=== PATIENT | female | born 1975 | race Caucasian/White ===

== ENCOUNTER → 2016-07-27 | Outpatient (CLI) | payer OTHER | LOC: FIMAGING 09:43 | PROVIDERS: ATTEND Obstetrics & Gynecology | DX: N92.0 Excessive and frequent menstruation with regular cycle (principal) ==

== ENCOUNTER 2016-10-22 18:50 | Emergency (ER) | payer OTHER ==
[2016-10-22 18:54] VITALS: RESP 16
[2016-10-22] MEDS ORDERED: ONDANSETRON 4 MG/2 ML VIAL IVP ONE (19:54)
[2016-10-22] MEDS ORDERED: NS 1,000 ML IV ONE ×2 (19:56→22:26)
--- NOTE | 2016-10-22 20:16 | EDPHY ---
HPI/HX/ROS/PE/MDM Narrative: CHIEF COMPLAINT: Headache HISTORY OF PRESENT ILLNESS: The patient is a 40-year-old female with history of migraines, who presents with headache that started around 12 p.m. The patient had a headache yesterday, no associated vomiting, or light sensitivity. She took Ibuprofen and headache improved. Around 12 p.m. today she developed frontal headache, that feels similar to previous migraines. She has not had a migraine for five years. Her headache today is severe, it is localized across the frontal region. She has associated vomiting and photophobia. The patient recently had UTI and was on antibiotics. She denies numbness, tingling, or weakness in her extremities. She reports no recent head trauma. The patient is noncompliant with her hypertension medication, she states she does not take it because of the side effects. She had a cold last week. No persistent symptoms. REVIEW OF SYSTEMS: Aside from elements discussed in the HPI, a comprehensive 10-point review of systems was reviewed and is negative. PAST MEDICAL HISTORY: Migraines, Hypertension. Patient reports that she has not been taking her antihypertensive medications. SOCIAL HISTORY: . Lives in [place]. VITAL SIGNS Reviewed by me. GENERAL: Very uncomfortable appearing, resting in a dark room. HEENT: Atraumatic. Eyes: PERRL, EOMI, no nystagmus. No icterus. No injection. Mouth: moist mucous membranes. No erythema or lesions. Neck: No meningitis. Nontender to palpation. No adenopathy. Negative Kernig's. Negative Brudzinski's. No meningismus. LUNGS: Clear to auscultation bilaterally, no wheezes, rhonchi or rales. CARDIAC: Regular rate and rhythm, no rubs, murmurs or gallops. ABDOMEN: Soft, nontender, nondistended, bowel sounds normal. BACK: No CVA tenderness. EXTREMITIES: No trauma. No edema. Range of motion is normal throughout. NEURO: Alert and oriented, cranial nerves II through XII are intact. Motor strength 5 over 5 in all major muscle groups. Sensation intact to light touch. Normal gait. SKIN: Warm and dry, no rash. PSYCHIATRIC: Normal mentation, no agitation. Portions of this note were transcribed by a medical claims processor. I personally performed a history, physical exam, medical decision making, and confirmed accuracy of information the transcribed note. ED Course: Patient presents with migraine headache. Patient has not had migraine for over 5 years, with no recent workups. She reports severe, stabbing frontal headache. Associated vomiting and photophobia. IV established, patient received IV Zofran for nausea. Plan to treat headache with IV Decadron, Benadryl, Dilaudid, Reglan , and fluids. I ordered a head CT for further evaluation. Patient's head CT demonstrates no intracranial findings but the patient does have bilateral maxillary sinusitis. On re-examination she reports having a cold last week. Patient's pain has been decreased from 8/10 to 4/10. Toradol was administered. Patient was improved following the Toradol. She was comfortable being discharged home with hydrocodone to use as needed for any recurrent breakthrough pain. Patient was also instructed to continue taking her Bactrim for full 10 days to treat any acute maxillary sinusitis. MDM: After history was obtained, and the physical exam performed, a differential for headache was considered including, but not limited to, subarachnoid hemorrhage, migraine headache, tension headache and infectious causes such as meningitis, sinusitis, encephalitis. - Data Points Imaging Results: Imaging Impressions Head CT 10/22/16 20:19 Impression: 1. Moderate bilateral maxillary sinusitis.. 2. Otherwise, normal noncontrast CT brain. Findings and recommendations discussed with Emergency Department physician, Nadine Dykes M.D., at 2130 hours, on October 22, 2016. Final report concurs with initial preliminary interpretation. Imaging: Discussed imaging studies w/ material planner Radiologist Medications Given: Discontinued Medications Dexamethasone (Decadron Injection) 10 mg IVP EDNOW ONE Stop: 10/22/16 20:19 Last Admin: 10/22/16 20:44 Dose: 10 mg Diphenhydramine HCl (Benadryl Injection) 25 mg IVP EDNOW ONE Stop: 10/22/16 20:19 Last Admin: 10/22/16 20:44 Dose: 25 mg Hydromorphone HCl (Dilaudid) 0.5 mg IVP EDNOW ONE Stop: 10/22/16 20:19 Last Admin: 10/22/16 20:45 Dose: 0.5 mg Sodium Chloride (Ns) 1,000 mls @ 0 mls/hr IV ONCE ONE PRN Reason: Wide Open Stop: 10/22/16 19:57 Last Admin: 10/22/16 19:57 Dose: 1,000 mls Ketorolac Tromethamine (Toradol) 30 mg IVP EDNOW ONE Stop: 10/22/16 21:39 Last Admin: 10/22/16 21:45 Dose: 30 mg Metoclopramide HCl (Reglan Injection) 10 mg IVP EDNOW ONE Stop: 10/22/16 20:19 Last Admin: 10/22/16 20:45 Dose: 10 mg Ondansetron HCl (Zofran) 4 mg IVP EDNOW ONE Stop: 10/22/16 19:55 Last Admin: 10/22/16 19:56 Dose: 4 mg General Time Seen by Provider: 10/22/16 19:55 Initial Vital Signs: Initial Vital Signs Temperature (C) 36.8 C 10/22/16 18:52 Heart Rate 72 10/22/16 18:52 Respiratory Rate 16 10/22/16 18:52 Blood Pressure 167/95 H 10/22/16 18:52 O2 Sat (%) 99 10/22/16 18:52 O2 Delivery Mode Room Air Allergies/Adverse Reactions: No Known Allergies Allergy (Unverified 07/25/15 20:28) Home Medications: Medication Instructions Recorded Lisinopril 07/25/15 Bactrim DS 10/22/16 Hydrocodone/APAP 5/325 [[place] 1 tab PO Q6H PRN #8 tab 10/22/16 5/325 (RX)] Departure - Departure Disposition: Home, Routine, Self-Care Clinical Impression: Migraine headache Qualifiers: Migraine type: without aura Status migrainosus presence: without status migrainosus Intractability: not intractable Qualified Code(s): G43.009 - Migraine without aura, not intractable, without status migrainosus Sinusitis Qualifiers: Sinusitis location: maxillary Chronicity: acute Recurrence: not specified as recurrent Qualified Code(s): J01.00 - Acute maxillary sinusitis, unspecified Condition: Good Instructions: Migraine Headache (ED) Additional Instructions: Followup with your primary care physician as needed. Return to the Emergency Department if symptoms return. Okay to take hydrocodone if needed for ongoing pain. Be sure you get a good night sleep. To treat your sinusitis, I recommend [id number] Flonase as well as Afrin nasal spray for decongestant. Sinusitis typically will not clear well without a decongestant. Please call your physician to have your Bactrim extended for full 10 days. Referrals: Manjinder Jiang MD [Primary Care Provider] - As per Instructions Prescriptions: Hydrocodone/APAP 5/325 [[place] 5/325 (RX)] 1 tab PO Q6H PRN #8 tab PRN Reason: Pain Report Scribed for: Nadine Dykes Report Scribed by: Orly Bravo Date of Report: 10/22/16 Time of Report: 20:20
[2016-10-22] MEDS ORDERED: HYDROmorphONE/DILAUDID 1 MG/ML SYR IVP ONE (20:18)
[2016-10-22] MEDS ORDERED: METOCLOPRAMIDE 10 MG/2 ML VIAL IVP ONE (20:18)
[2016-10-22] MEDS ORDERED: DEXAMETHASONE 10 MG/ML VIAL IVP ONE (20:18)
[2016-10-22] MEDS ORDERED: KETOROLAC 30 MG/1 ML SDV IVP ONE (21:38)
[2016-10-22 22:26] VITALS: BP 122/76; PULSE 70; TEMP 98.1; O2SAT 98
== END 2016-10-22 22:27 | disposition home or self-care (01) ==
DX: G43.009 Migraine without aura, not intractable, without status migrainosus (principal); J01.00 Acute maxillary sinusitis, unspecified; I10 Essential (primary) hypertension
CPT/HCPCS: 96374; J1170; J1200; J1885; J2405; J2765

== ENCOUNTER 2017-01-22 11:15 | Emergency (ER) | payer OTHER ==
[2017-01-22 11:27] VITALS: RESP 18; TEMP 98.2; O2SAT 99
--- NOTE | 2017-01-22 12:29 | CPEKG ---
Heart Rate: 66 RR Interval: 909 P-R Interval: 132 QRSD Interval: 106 QT Interval: 444 QTC Interval: 466 P Taft: 87 QRS Taft: 95 T Wave Taft: 52 EKG Severity - NORMAL ECG - EKG Impression: SINUS RHYTHM Electronically Signed By: Chriss Richardson 22-Jan-2017 14:47:44
--- NOTE | 2017-01-22 12:42 | EDPHY ---
H & P Stated Complaint: sob chest tightness/pressure since saturday Time Seen by Provider: 01/22/17 12:41 - Personal History LMP (Females 10-55): 1-7 Days Ago Current Tetanus/Diphtheria Vaccine: Yes Tetanus Vaccine Date: WITHIN 10 YRS - Medical/Surgical History Hx Asthma: No Hx Chronic Respiratory Disease: No Hx Diabetes: No Hx Cardiac Disease: No Hx Renal Disease: No Hx Cirrhosis: No Hx Alcoholism: No Hx HIV/AIDS: No Hx Splenectomy or Spleen Trauma: No Other PMH: KIDNEY STONE WITH LITHOTRIPSY, HTN, - Social History Smoking Status: Never smoked Constitutional: Initial Vital Signs Temperature (C) 36.8 C 01/22/17 11:25 Heart Rate 75 01/22/17 11:25 Respiratory Rate 18 01/22/17 11:25 Blood Pressure 160/110 H 01/22/17 11:25 O2 Sat (%) 99 01/22/17 11:25 O2 Delivery Mode Room Air Allergies/Adverse Reactions: No Known Allergies Allergy (Verified 01/22/17 11:24) Home Medications: Medication Instructions Recorded Hydrochlorothiazide 01/22/17 Medical Decision Making - Diagnostics Imaging Results: Imaging Impressions Chest X-Ray 01/22/17 12:48 Impression: Normal chest. ED Course/Re-evaluation: CHIEF COMPLAINT: Intermittent chest heaviness HISTORY OF PRESENT ILLNESS: Healthy 41-year-old female who over the last several days is notice some intermittent chest heaviness on the left upper chest area when she takes a deep breath. She denies any true shortness of breath. She denies any difficulty with her exercise over the last couple weeks. She denies any cardiovascular history. She denies any prior cardiovascular workup. She denies any recent travel or prolonged sitting. I cannot elicit any DVT risk factors. Patient denies radiation of the pain. Patient denies any significant family history of coronary artery disease or blood clots. REVIEW OF SYSTEMS: A 10 point review of systems was performed and is negative with the exception of the elements mentioned in the history of present illness. PHYSICAL EXAM: HR, BP, O2 Sat, RR. Temp noted General Appearance: Alert, well hydrated, appropriate, and non-toxic appearing. Head: Atraumatic without scalp tenderness or obvious injury Eyes: Pupils equal, round, reactive to light and accommodation, EOMI, no trauma , no injection. Ears: Clear bilaterally, no perforation, normal landmarks Nose: Atraumatic, no rhinorrhea, clear. Throat: There is no erythema or exudates, no lesions, normal tonsils, mucus membranes moist. Neck: Supple, 2+ carotid upstroke, nontender, no lymphadenopathy. Respiratory: No retractions, no distress, no wheezes, and no accessory muscle use. Lungs are clear to auscultation bilaterally. Cardiovascular: Regular rate and rhythm, no murmurs, rubs, or gallops. Bilateral carotid, radial, dorsalis pedis, and posterior tibial pulses intact. Good capillary refill all extremities. Gastrointestinal: Abdomen is soft, nontender, non-distended, no masses, no rebound, no guarding, no peritoneal signs. Musculoskeletal: Normal active ROM of all extremities, atraumatic. Neurological: Alert, appropriate, and interactive. The patient has normal DTRs and non-focal cranial nerves, motor, sensory, and cerebellar exam. Skin: No rashes, good turgor, no nodules on palpation. Past medical history: None Past surgical history: None Family history: Noncontributory specifically no early cardiovascular disease and no early thromboembolic disease Social history: Single, employed, does not abuse tobacco drugs or alcohol DIAGNOSTICS/PROCEDURES/CRITICAL CARE TIME: Study: PA and Lateral Chest X-ray Indication: chest pressure Results: After viewing the images myself on the PACS system. My interpretation of the images is: no acute process. The radiologist interpretation is pending at the time of this dictation. DIFFERENTIAL DIAGNOSIS: The differential diagnosis for the patient's chest pressure included but was not limited to myocardial ischemia, pulmonary embolus , chest wall pain, pleural inflammation, and pulmonary infectious causes. MEDICAL DECISION MAKING: This patient has no distress and no findings on physical exam. EKG is unremarkable and is sinus mechanism with no evidence of ischemia or right heart strain. She has normal intervals. Chest x-ray is unremarkable. Laboratory studies are pending. Patient has no risk factors for cardiovascular disease or thromboembolic disease historically. - Data Points Laboratory Results: Laboratory Results 01/22/17 12:35 01/22/17 12:35 01/22/17 01/22/17 01/22/17 12:35 12:35 12:35 WBC 6.56 10^3/uL 10^3/uL (3.80-9.50) RBC 5.03 10^6/uL 10^6/uL (4.18-5.33) Hgb 15.2 g/dL g/dL (12.6-16.3) Hct 44.7 % % (38.0-47.0) MCV 88.9 fL fL (81.5-99.8) MCH 30.2 pg pg (27.9-34.1) MCHC 34.0 g/dL g/dL (32.4-36.7) RDW 12.6 % % (11.5-15.2) Plt Count 228 10^3/uL 10^3/uL (150-400) MPV 11.3 fL fL (8.7-11.7) Neut % (Auto) 58.5 % % (39.3-74.2) Lymph % (Auto) 33.7 % % (15.0-45.0) [place] % (Auto) 6.7 % % (4.5-13.0) Eos % (Auto) 0.3 % L % (0.6-7.6) Baso % (Auto) 0.5 % % (0.3-1.7) Nucleat RBC Rel Count 0.0 % % (0.0-0.2) Absolute Neuts (auto) 3.84 10^3/uL 10^3/uL (1.70-6.50) Absolute Lymphs (auto) 2.21 10^3/uL 10^3/uL (1.00-3.00) Absolute Monos (auto) 0.44 10^3/uL 10^3/uL (0.30-0.80) Absolute Eos (auto) 0.02 10^3/uL L 10^3/uL (0.03-0.40) Absolute Basos (auto) 0.03 10^3/uL 10^3/uL (0.02-0.10) Absolute Nucleated RBC 0.00 10^3/uL 10^3/uL (0-0.01) Immature Gran % 0.3 % % (0.0-1.1) Immature Gran # 0.02 10^3/uL 10^3/uL (0.00-0.10) D-Dimer 0.28 ug/mLFEU ug/mLFEU (0.00-0.50) Sodium 139 mEq/L mEq/L (134-144) Potassium 3.8 mEq/L mEq/L (3.5-5.2) Chloride 102 mEq/L mEq/L (97-110) Carbon Dioxide 26 mEq/l mEq/l (22-31) Anion Gap 11 mEq/L mEq/L (8-16) BUN 22 mg/dL mg/dL (7-23) Creatinine 1.0 mg/dL mg/dL (0.6-1.0) Estimated GFR > 60 Glucose 88 mg/dL mg/dL (70-100) Calcium 10.4 mg/dL mg/dL (8.5-10.4) Magnesium 2.0 mg/dL mg/dL (1.6-2.3) Troponin I < 0.012 ng/mL ng/mL (0.000-0.034) NT-Pro-B Natriuret Pep 356 pg/mL H pg/mL (0-125) Medications Given: Discontinued Medications Aspirin (Aspirin) 324 mg PO EDNOW ONE Stop: 01/22/17 12:49 Last Admin: 01/22/17 12:57 Dose: 324 mg Sodium Chloride (Ns) 500 mls @ 1,000 mls/hr IV EDNOW ONE PRN Reason: Protocol Stop: 01/22/17 13:17 Last Admin: 01/22/17 12:58 Dose: 500 mls Departure - Departure Disposition: Home, Routine, Self-Care Clinical Impression: Shortness of breath Condition: Good Instructions: Dyspnea (ED) Additional Instructions: 1. Follow up with your primary care provider for continued evaluation of symptoms. 2. Return to the emergency department for worsening shortness of breath, chest pain, fever, or other worsening of condition. Referrals: Manjinder Jiang MD [Primary Care Provider] - As per Instructions
[2017-01-22] MEDS ORDERED: NS 500 ML IV ONE (12:48)
[2017-01-22] MEDS ORDERED: ASPIRIN 81 MG CHEWABLE TAB PO ONE (12:48)
[2017-01-22 12:54] LABS: % IMMATURE GRANULYOCYTES 0.3 % (0.0-1.1); ABSOLUTE IMMATURE GRANULOCYTES 0.02 10^3/uL (0.00-0.10); ADD DIFF? NO; ADD MORPH? NO; ADD SCAN? NO; ATYPICAL LYMPHOCYTE FLAG 0 (0-99); FRAGMENT RBC FLAG 0 (0-99); HEMATOCRIT 44.7 % (38.0-47.0); HEMOGLOBIN 15.2 g/dL (12.6-16.3); LEFT SHIFT FLG 0 (0-99); LIPEMIA HEMOLYSIS FLAG 90 (0-99); MEAN CELL HEMOGLOBIN 30.2 pg (27.9-34.1); MEAN CELL VOLUME 88.9 fL (81.5-99.8); MEAN PLATELET VOLUME 11.3 fL (8.7-11.7); PLATELET CLUMPS FLAG 0 (0-99); PLATELET COUNT 228 10^3/uL (150-400); RED BLOOD CELL COUNT 5.03 10^6/uL (4.18-5.33); RED CELL DISTRIBUTION WIDTH 12.6 % (11.5-15.2)
[2017-01-22 13:06] LABS: ANION GAP 11 mEq/L (8-16); CALCIUM 10.4 mg/dL (8.5-10.4); CARBON DIOXIDE 26 mEq/l (22-31); CHLORIDE 102 mEq/L (97-110); GLOMERULAR FILTRATION RATE > 60; GLUCOSE 88 mg/dL (70-100); POTASSIUM 3.8 mEq/L (3.5-5.2); SODIUM 139 mEq/L (134-144)
[2017-01-22 13:18] LABS: TROPONIN I < 0.012 ng/mL (0.000-0.034)
[2017-01-22 14:10] VITALS: BP 125/85; PULSE 67
== END 2017-01-22 14:10 | disposition home or self-care (01) ==
DX: R06.02 Shortness of breath (principal); I10 Essential (primary) hypertension; E86.9 Volume depletion, unspecified

== ENCOUNTER → 2017-06-14 | Outpatient (CLI) | payer OTHER | LOC: BMCIMAGING 09:01 | PROVIDERS: ATTEND Family Medicine | DX: S93.491A Sprain of other ligament of right ankle, initial encounter (principal); W10.9XXA Fall (on) (from) unspecified stairs and steps, initial encounter ==

== ENCOUNTER → 2017-09-09 | Outpatient (CLI) | payer OTHER | LOC: BMCIMAGING 08:12 | PROVIDERS: ATTEND Obstetrics & Gynecology | DX: Z12.31 Encounter for screening mammogram for malignant neoplasm of breast (principal) ==

== ENCOUNTER → 2017-12-16 | Outpatient (CLI) | payer OTHER | LOC: BMCIMAGING 07:58 | PROVIDERS: ATTEND Internal Medicine | DX: R93.5 Abnormal findings on diagnostic imaging of other abdominal regions, including retroperitoneum (principal); K87 Disorders of gallbladder, biliary tract and pancreas in diseases classified elsewhere; N20.0 Calculus of kidney; D30.01 Benign neoplasm of right kidney ==

== ENCOUNTER → 2018-01-15 | Outpatient (CLI) | payer OTHER ==
[~2018-01-15] MED LIST: IOPAMIDOL (ISOVUE-300) 100 ML BTL ONE
== END ==
LOC: FIMAGING 07:59
PROVIDERS: ATTEND Physician Assistant
DX: R93.3 Abnormal findings on diagnostic imaging of other parts of digestive tract (principal)
CPT/HCPCS: Q9967

== ENCOUNTER → 2018-01-27 | Outpatient (CLI) | payer OTHER ==
[~2018-01-27] MED LIST changes: -IOPAMIDOL (ISOVUE-300) 100 ML BTL ONE; +SINCALIDE 5 MCG VIAL IV ONE
== END ==
LOC: FIMAGING 08:17
PROVIDERS: ATTEND Physician Assistant
PROC: CF1CYZZ Planar Nuclear Medicine Imaging of Hepatobiliary System, All using Other Radionuclide (ICD-10-PCS; principal; 2018-01-27)
DX: R10.9 Unspecified abdominal pain (principal); R11.0 Nausea
CPT/HCPCS: 78227; A9537; J2805

== ENCOUNTER → 2018-07-10 | Outpatient (CLI) | payer OTHER | LOC: BMCIMAGING 18:12 ==

== ENCOUNTER → 2018-07-29 | Outpatient (CLI) | payer OTHER | LOC: FIMAGING 07:19 | PROVIDERS: ATTEND Surgery | DX: K82.8 Other specified diseases of gallbladder (principal); N20.0 Calculus of kidney ==

== ENCOUNTER → 2018-07-31 | Outpatient (CLI) | payer OTHER | LOC: FIMAGING 14:04 | PROVIDERS: ATTEND Physician Assistant | DX: R10.31 Right lower quadrant pain (principal) ==